=== PATIENT | male | born 1950 | race Native Hawaiian/Other Pacific Islander ===

== ENCOUNTER 2018-01-11 12:02 | Inpatient (IN) | payer BC, OTHER ==
[~2018-01-11] VITALS: Ht 167.6 cm; Wt 84.1 kg
[~2018-01-11 12:02] MED LIST: AMLO2.5T PO; ASA LOW DOSE81 MG PO; CARV12.5 PO; DICY20TA34 PO; LIPITOR80 MG PO; LISI10TA11 PO; NEXIUM40 M1 PO; NIACIN ER1000 MG PO; PRAZOSIN HCL1 MG PO
[2018-01-11 14:01] VITALS: BP 166/96; TEMP 100.4; Ht 167.6 cm; Wt 84.1 kg
[2018-01-11 14:04] LABS: PLATELET COUNT 192 K/uL (142-355)
[2018-01-11] MEDS ORDERED: NEXIUM40 M1 PO (14:51)
[2018-01-11] MEDS ORDERED: NAPROSYN500 MG OR (15:03)
[2018-01-11 15:30] LABS: POTASSIUM 4.4 mmol/L (3.6-5.2)
[2018-01-11 16:00] VITALS: BP 157/87; TEMP 100.6
--- NOTE | 2018-01-11 17:53 | NUR ---
CHEST XRAY SHOWED 3CM MASS IN RIGHT APICAL. CHEST XRAY WITH CONTRAST RECOMMENDED. DR. VIRK NOTIFIED AND ORDERED CT. WILL PERFORM LATER TONIGHT.
[2018-01-11 20:00] VITALS: BP 146/81; TEMP 99.5
--- NOTE | 2018-01-11 22:19 | NUR ---
01/11/180 PT TO EXRAY VIA WHEELCHAIR FOR CT.CC
[2018-01-12] VITALS (12 sets, daily range): BP systolic 100–153; BP diastolic 53–84; TEMP 97.6–102.3
[2018-01-12 06:12] LABS: PLATELET COUNT 146 K/uL (142-355)
[2018-01-12 06:27] LABS: POTASSIUM 4.3 mmol/L (3.6-5.2)
--- NOTE | 2018-01-12 09:00 | NUR ---
CT SCAN SHOWS ACUTE CHOLECYSTITIS. KWABENA YATES AWARE AND NOTIFYING DR. PEREZ.
--- NOTE | 2018-01-12 09:45 | NUR ---
DR. PEREZ ORDERS FOR "CONSENT FOR LAPROSCOPIC CHOLECYSTECTOMY POSSIBLE OPEN AND OTHER INDICATED PROCEDURES."
--- NOTE | 2018-01-12 10:30 | NUR ---
CONSENT SIGNED BY PATIENT. PT VERBALIZES UNDERSTANDING OF PROCEDURE, RISKS, AND BENEFITS. PT HAS NO FUTHER QUESTIONS.
--- NOTE | 2018-01-12 13:50 | NUR ---
OR HERE AT THIS TIME TO TRANSPORT PT TO OR VIA STRETCHER FOR PROCEDURE. NAD NOTED.
--- NOTE | 2018-01-12 17:05 | NUR ---
REPORT RECIEVED FROM SONIA REILLY, SHE STATES PT DID WELL THROUGHOUT SURGERY AND VITAL SIGNS REMAINED STABLE. LAPROSCOPIC SURGERY PERFORMED. SHE STATES THEY WILL TRANSPORT PT BACK TO ROOM IN A FEW MINUTES.
--- NOTE | 2018-01-12 17:30 | NUR ---
PT IN ROOM AT THIS TIME. PT DROWSY AND STATES HE IS TIRED. NAD NOTED. PT HOOKED UP TO VITAL SIGN MACHINE FOR POST OP VITALS. PT HAS 5 BANDAIDS TO ABDOMEN AND SMALL BANDAGE OVER UMBILICUS. FAMILY AT BS. WILL CONT TO MONITOR PT.
--- NOTE | 2018-01-12 19:00 | NUR ---
PT SITTING UP IN BED EATING CRUSHED ICE. NAD NOTED. PT HAS NO COMPLAINTS.
[2018-01-13] VITALS: BP 113/60; TEMP 98.4
[2018-01-13 04:00] VITALS: BP 115/56; TEMP 98.4
[2018-01-13 06:08] LABS: PLATELET COUNT 133 K/uL (142-355)
[2018-01-13 06:17] LABS: POTASSIUM 4.9 mmol/L (3.6-5.2)
[2018-01-13 08:00] VITALS: BP 116/61; TEMP 97.7
[2018-01-13 11:49] VITALS: BP 121/62; TEMP 99.6
[2018-01-13 16:00] VITALS: BP 128/72; TEMP 98
[2018-01-13 20:00] VITALS: BP 129/53; TEMP 98.9
[2018-01-14] VITALS: BP 132/67; TEMP 99
[2018-01-14 04:00] VITALS: BP 135/67; TEMP 99.2
[2018-01-14 05:38] LABS: PLATELET COUNT 150 K/uL (142-355)
[2018-01-14 05:58] LABS: POTASSIUM 4.1 mmol/L (3.6-5.2)
--- NOTE | 2018-01-14 06:08 | NUR ---
BLADDER TRAINING Q2H DONE
--- NOTE | 2018-01-14 06:35 | NUR ---
NOTIFIED DR. VIRK OF CPK 552, STATED OK DR. OSPINA IS TO SEE LATER THIS AM.
[2018-01-14 08:00] VITALS: BP 150/72; TEMP 97.8
--- NOTE | 2018-01-14 11:00 | NUR ---
MAHONEY CATH REMOVED AND SCD. BERTHA WELL
[2018-01-14 12:00] VITALS: BP 105/69; TEMP 99
[2018-01-14 16:00] VITALS: BP 135/68; TEMP 98.9
--- NOTE | 2018-01-14 17:30 | NUR ---
DR. PEREZ CALLED. NEW ORDERS RECEIVED.
[2018-01-14 20:00] VITALS: BP 150/70; TEMP 98.8
--- NOTE | 2018-01-14 22:53 | NUR ---
DR. PEREZ CALLED AT THIS TIME WITH CT RESULTS. ORDER FOR FLAT AND UPRIGHT XRAY OF ABD FOR IN THE AM WAS ORDERED. NO FURTHER ORDERS WERE GIVEN AT THIS TIME
[2018-01-15] VITALS: BP 120/64; TEMP 98.9
[2018-01-15 04:00] VITALS: BP 136/71; TEMP 99.5
[2018-01-15 05:49] LABS: PLATELET COUNT 175 K/uL (142-355)
[2018-01-15 06:09] LABS: POTASSIUM 3.9 mmol/L (3.6-5.2)
[2018-01-15 08:04] VITALS: BP 142/69; TEMP 98.7
--- NOTE | 2018-01-15 11:05 | NUR ---
PT UP WALKING IN HALLWAY. GRANDDAUGHTER AT SIDE. PT TOLERATING WELL. NAD NOTED.
[2018-01-15 12:10] VITALS: BP 134/65; TEMP 99.9
[2018-01-15 16:00] VITALS: BP 124/80; TEMP 100.9
[2018-01-15 20:00] VITALS: BP 131/66; TEMP 99.9
[2018-01-16] VITALS: BP 125/69; TEMP 99.4
[2018-01-16 03:59] VITALS: BP 132/63; TEMP 99
[2018-01-16 05:47] LABS: PLATELET COUNT 161 K/uL (142-355)
[2018-01-16 08:00] VITALS: BP 123/63; TEMP 98.7
[2018-01-16 12:00] VITALS: BP 138/60; TEMP 98.5
[2018-01-16 16:27] VITALS: BP 127/60; TEMP 99.3
[2018-01-16 20:00] VITALS: BP 132/62; TEMP 99.9
[2018-01-17] VITALS: BP 136/60; TEMP 99.9
[2018-01-17 04:00] VITALS: BP 128/58; TEMP 99.1
[2018-01-17 05:59] LABS: PLATELET COUNT 171 K/uL (142-355)
[2018-01-17 06:08] LABS: POTASSIUM 3.9 mmol/L (3.6-5.2)
[2018-01-17 08:00] VITALS: BP 136/60; TEMP 99.6
[2018-01-17 12:00] VITALS: BP 158/68; TEMP 99
--- NOTE | 2018-01-17 13:00 | NUR ---
PT UP AMBULATING IN THE HALLWAY. AT SIDE. PT TOLERATING WELL. NAD NOTED.
[2018-01-17 16:00] VITALS: BP 150/66; TEMP 98.1
[2018-01-17 20:00] VITALS: BP 121/59; BP 144/69; TEMP 100
[2018-01-18] VITALS: BP 136/62; TEMP 99
[2018-01-18 04:00] VITALS: BP 144/63; TEMP 99
[2018-01-18 06:48] LABS: PLATELET COUNT 197 K/uL (142-355)
[2018-01-18 06:51] LABS: POTASSIUM 3.8 mmol/L (3.6-5.2)
[2018-01-18 08:00] VITALS: BP 150/66; TEMP 99.6
--- NOTE | 2018-01-18 08:05 | NUR ---
DR PEREZ IN WITH PT AND FAMILY TO DISCUSS FURTHER CARE AND ASSESS PT. NAD NOTED. WILL CONTINUE TO MONITOR.
[2018-01-18 12:00] VITALS: BP 135/70; TEMP 99
--- NOTE | 2018-01-18 13:13 | NUR ---
DR PEREZ AT BEDSIDE TO ASSESS AND DISCUSS FURTHER CARE.
[2018-01-18 16:00] VITALS: BP 153/67; TEMP 98.8
[2018-01-18 20:04] VITALS: BP 143/67; TEMP 99.1
[2018-01-19] VITALS: BP 144/67; TEMP 99.1
[2018-01-19 04:00] VITALS: BP 150/71; TEMP 98.4
[2018-01-19 05:24] LABS: PLATELET COUNT 195 K/uL (142-355)
[2018-01-19 05:44] LABS: POTASSIUM 3.6 mmol/L (3.6-5.2)
[2018-01-19 07:57] VITALS: BP 154/74; TEMP 98.6
--- NOTE | 2018-01-19 10:00 | NUR ---
IV D/C'D. D/C INSTRUCTIONS GIVEN. PRESCRIPTIONS FOR REGLAN AND PHENERGAN GIVEN. PT INSTRUCTED TO BE CAREFUL WITH WHAT HE EATS AND TO EAT SMALL AMOUNTS AT A TIME. PT TO FU WITH DR. PERZE IN ONE WEEK. PT WHEELED OUT VIA W/C TO [employer]. NO PROBLEMS NOTED.
== END 2018-01-19 10:20 | disposition home or self-care (01) | DRG 418 ==
LOC: MED/SURG 12:02
PROVIDERS: Family Medicine; Student in an Organized Health Care Education/Training Program; ADMIT Nurse Practitioner
PROC: 0FT44ZZ Resection of Gallbladder, Percutaneous Endoscopic Approach (ICD-10-PCS; principal; 2018-01-12)
PROC: 0DQ84ZZ Repair Small Intestine, Percutaneous Endoscopic Approach (ICD-10-PCS; 2018-01-12)
PROC: 0DNW4ZZ Release Peritoneum, Percutaneous Endoscopic Approach (ICD-10-PCS; 2018-01-12)
PROC: 30233N1 Transfusion of Nonautologous Red Blood Cells into Peripheral Vein, Percutaneous Approach (ICD-10-PCS; 2018-01-16)
DX: K81.0 Acute cholecystitis (principal); S36.438A Laceration of other part of small intestine, initial encounter; K52.89 Other specified noninfective gastroenteritis and colitis; E86.0 Dehydration; R42 Dizziness and giddiness; I10 Essential (primary) hypertension; E78.4 Other hyperlipidemia; I25.10 Atherosclerotic heart disease of native coronary artery without angina pectoris; K66.0 Peritoneal adhesions (postprocedural) (postinfection); D64.89 Other specified anemias
CPT/HCPCS: 36415; 36430; 80048; 80053; 81000; 82550; 82553; 83615; 83735; 84100; 84134; 84478; 84484; 85027; 86850; 86900; 86901; 86922; 93005; 94760; 96366; 96367; 96372; 96374; 96375; C1751; J0132; J0330; J0690; J1100; J1170; J1644; J2001; J2250; J2405; J2543; J2550; J2704; J2765; J3010; J3420; J3490; P9016; Q9963; S0028

== ENCOUNTER 2018-10-05 09:17 | Outpatient (CLI) | payer BC ==
[~2018-10-05 09:17] MED LIST changes: +NAPROSYN500 MG OR
== END 2018-10-05 22:09 | disposition home or self-care (01) ==
LOC: RAD 09:17
DX: L03.011 Cellulitis of right finger (principal)